=== PATIENT | female | born 1990 | race Caucasian/White ===

== ENCOUNTER 2020-10-24 16:32 | Day surgery (SDC) | payer BC ==
[2020-10-24 17:36] VITALS: BMI 29.2
[2020-10-24] MEDS ORDERED: hydrALAZINE 20 MG/ML VIAL SLOW IVP PRN (18:55)
== END 2020-10-24 20:30 | disposition home or self-care (01) ==
LOC: CSHLD/OP 16:32
PROVIDERS: ATTEND Student in an Organized Health Care Education/Training Program
DX: O47.1 False labor at or after 37 completed weeks of gestation (principal); O24.410 Gestational diabetes mellitus in pregnancy, diet controlled; Z3A.39 39 weeks gestation of pregnancy; Z88.5 Allergy status to narcotic agent; Z91.048 Other nonmedicinal substance allergy status
CPT/HCPCS: 36416

== ENCOUNTER 2020-10-25 18:05 | Inpatient (IN) | payer BC ==
[2020-10-25] MEDS ORDERED: hydrALAZINE 20 MG/ML VIAL SLOW IVP PRN ×2 (18:26→23:20)
[2020-10-25] MEDS ORDERED: NS / Oxytocin 40 units/1000ml 1,000 ML IV PRN (18:26)
[2020-10-25] MEDS ORDERED: Promethazine HCl 25 MG/ML VIAL IM PRN ×2 (18:26→19:28)
[2020-10-25] MEDS ORDERED: Lidocaine 1% (PF) 30 ML VIAL SC PRN (18:26)
[2020-10-25] MEDS ORDERED: Ondansetron PF 4 MG/2 ML Vial IVP PRN ×2 (18:26→19:28)
[2020-10-25] MEDS ORDERED: Lactated Ringer's 1,000 ML IV SCH (18:30)
[2020-10-25 18:48] LABS: Hemoglobin 10.9 g/dL (12.0-15.5); Mean Corpuscular Hemoglobin 28.8 pg (27.0-33.0); Mean Corpuscular Volume 84.7 fl (81.6-98.3); Mean Platelet Volume 11.5 fl (7.4-10.4); Platelet Count 214 10x3/uL (150-450); RBC Distribution Width 13.2 % (11.5-14.5); Red Blood Cell (RBC) Count 3.79 10x6/uL (3.90-5.03); White Blood Cell (WBC) Count 10.3 10x3/uL (3.5-10.5)
[2020-10-25] MEDS ORDERED: Fentanyl 4 mcg/Bup 0.1% Cadd 100 ML ONE (18:57)
[2020-10-25 18:59] VITALS: BMI 29.2
[2020-10-25 19:22] LABS: Hep B Surf Ag Non-Reactive S/CO (NonReactive); Syphilis Antibody Nonreactive (Nonreactive); Syphilis Antibody Index 0.05 S/CO (<1.00 Non-Reactive)
[2020-10-25] MEDS ORDERED: Acetaminophen 325 MG TAB PO PRN (19:28)
[2020-10-25] MEDS ORDERED: Eucerin (Mineral Oil/Petrolatum,White) 30 gm Jar TOP PRN (19:28)
[2020-10-25] MEDS ORDERED: Lactated Ringer's 500 ML IV PRN (19:28)
[2020-10-25] MEDS ORDERED: diphenhydrAMINE 50 MG/ML VIAL IVP PRN (19:28)
[2020-10-25] MEDS ORDERED: ePHEDrine 50 MG/ML VIAL SLOW IVP PRN (19:28)
[2020-10-25] MEDS ORDERED: Naloxone HCl 0.4 mg/ml Vial IVP PRN ×2 (19:28)
[2020-10-25] MEDS ORDERED: Communication Order-Pharmacy FS SCH (19:30)
[2020-10-25] MEDS ORDERED: Fentanyl 4 mcg/Bupivacaine 0.1% Cassette 100 ML EPIDURAL SCH (19:30)
[2020-10-25 19:45] LABS: HBSAg Index 0.13 S/CO (0-0.99)
[2020-10-25] MEDS ORDERED: Lidocaine 1% (PF) 30 ML VIAL ONE (20:13)
[2020-10-25] MEDS ORDERED: NS w/ Oxytocin 30 units 500 ML ONE ×2 (20:13→22:49)
[2020-10-25] MEDS ORDERED: Bisacodyl 10 MG SUPP PR PRN (23:20)
[2020-10-25] MEDS ORDERED: NS / Oxytocin 40 units/1000ml 1,000 ML IV SCH (23:20)
[2020-10-25] MEDS ORDERED: Milk Of Magnesia 30 ML UDCUP PO PRN (23:20)
[2020-10-25] MEDS ORDERED: Benzocaine-Menthol 82.5 ML CAN TOP PRN (23:20)
[2020-10-25] MEDS ORDERED: Lanolin Ointment 7 GM TUBE TOP PRN (23:20)
[2020-10-25] MEDS ORDERED: NS w/ Oxytocin 30 units 500 ML IV SCH (23:45)
[2020-10-26] MEDS: Ibuprofen 800 MG TAB PO SCH ×4 (03:43→23:44)
[2020-10-26 05:28] LABS: Hemoglobin 9.6 g/dL (12.0-15.5)
[2020-10-26] MEDS: Ferrous Sulfate 325 MG TAB PO SCH ×3 (08:11→18:04)
[2020-10-26] MEDS ORDERED: Adacel (T-DAP) 0.5 ML SYRINGE IM ONE (09:00)
[2020-10-26] MEDS: Docusate Calcium (SURFAK) 240 MG CAP PO SCH ×2 (09:56→23:45)
[2020-10-26] MEDS: Prenatal Vitamin 1 TAB PO SCH (09:56)
[2020-10-26 13:07] LABS: SARS-CoV-2 PCR by NAA Not Detected (NotDetected)
[2020-10-27] MEDS: Ibuprofen 800 MG TAB PO SCH ×4 (02:17→23:49)
[2020-10-27] MEDS: Docusate Calcium (SURFAK) 240 MG CAP PO SCH ×3 (02:18→23:49)
[2020-10-27] MEDS: Prenatal Vitamin 1 TAB PO SCH (08:24)
[2020-10-27] MEDS: Ferrous Sulfate 325 MG TAB PO SCH ×2 (08:24→17:46)
[2020-10-28 08:04] VITALS: BP 127/83; TEMP 98.1
[2020-10-28] MEDS: Docusate Calcium (SURFAK) 240 MG CAP PO SCH (09:45)
[2020-10-28] MEDS: Prenatal Vitamin 1 TAB PO SCH (09:45)
[2020-10-28] MEDS: Ibuprofen 800 MG TAB PO SCH (09:45)
[2020-10-28] MEDS: Ferrous Sulfate 325 MG TAB PO SCH (09:45)
== END 2020-10-28 12:44 | disposition home or self-care (01) | DRG 806 ==
LOC: CSHLD/OP 18:05 → CSHLD 19:00 → CSHPP 23:35
PROVIDERS: ADMIT Student in an Organized Health Care Education/Training Program; ATTEND Student in an Organized Health Care Education/Training Program
PROC: 10E0XZZ Delivery of Products of Conception, External Approach (ICD-10-PCS; principal; 2020-10-26)
PROC: 0HQ9XZZ Repair Perineum Skin, External Approach (ICD-10-PCS; 2020-10-26)
DX: O24.429 Gestational diabetes mellitus in childbirth, unspecified control (principal); D62 Acute posthemorrhagic anemia; Z37.0 Single live birth; Z3A.39 39 weeks gestation of pregnancy; Z20.822 Contact with and (suspected) exposure to COVID-19; O77.0 Labor and delivery complicated by meconium in amniotic fluid; O70.0 First degree perineal laceration during delivery; O90.81 Anemia of the puerperium; S86.912A Strain of unspecified muscle(s) and tendon(s) at lower leg level, left leg, initial encounter; O90.89 Other complications of the puerperium, not elsewhere classified
CPT/HCPCS: 36416; 51702; 85014; 85018; 85027; 86780; 86850; 86900; 86901; 87340; 87635; 99283; 99285; J2590; U0003; U0005

== ENCOUNTER 2022-01-13 11:25 | Day surgery (SDC) | payer BC ==
[2022-01-08 09:39] LABS: Hemoglobin 13.4 g/dL (12.0-15.5); Mean Corpuscular HGB CONC 34.2 g/dL (32.0-36.0); Mean Corpuscular Hemoglobin 29.6 pg (27.0-33.0); Mean Corpuscular Volume 86.7 fl (81.6-98.3); Mean Platelet Volume 10.9 fl (7.4-10.4); Platelet Count 295 10x3/uL (150-450); RBC Distribution Width 12.6 % (11.5-14.5); Red Blood Cell (RBC) Count 4.52 10x6/uL (3.90-5.03); White Blood Cell (WBC) Count 5.4 10x3/uL (3.5-10.5)
[2022-01-08 09:44] LABS: BHCG - Serum Negative (NEGATIVE)
[2022-01-08 09:45] LABS: Pregs Control Background? CLEAR/WHITE (CLR/WHITE); Pregs Control Bar Appear? YES (CONTROL BAR)
[2022-01-11 11:07] VITALS: BMI 24.9
[2022-01-13] MEDS ORDERED: Gabapentin 300 MG CAP ONE (11:50)
[2022-01-13] MEDS ORDERED: Lidocaine 1% MPF 2 ML VIAL ONE (11:51)
[2022-01-13] MEDS ORDERED: Famotidine/PF 20 mg/2ml Vial ONE (11:51)
[2022-01-13] MEDS ORDERED: CeleCOXIB 100 MG CAP ONE (11:51)
[2022-01-13] MEDS ORDERED: Bupivacaine PF 0.5% 30 ML VIAL ONE (12:28)
[2022-01-13] MEDS ORDERED: EPINEPHrine 1 MG/ML AMP ONE (12:28)
[2022-01-13] MEDS ORDERED: CEFAZOLIN 2 GM VIAL ONE (13:00)
[2022-01-13] MEDS ORDERED: Fentanyl 100 MCG/2 ML VIAL ONE ×2 (13:08→15:05)
[2022-01-13] MEDS ORDERED: PROPOFOL 20 ML ONE (13:08)
[2022-01-13] MEDS ORDERED: Midazolam HCl 2 mg/2 ml Vial ONE (13:08)
[2022-01-13] MEDS ORDERED: Glycopyrrolate 0.2 MG/ML 5 ML SYRINGE ONE (13:09)
[2022-01-13] MEDS ORDERED: Lidocaine 1% PF 5 ML VIAL ONE (13:09)
[2022-01-13] MEDS ORDERED: Ondansetron PF 4 MG/2 ML Vial ONE (13:09)
[2022-01-13] MEDS ORDERED: Dexamethasone 20 MG/5 ML VIAL ONE (13:09)
[2022-01-13] MEDS ORDERED: Rocuronium Bromide 10 MG/ML (10ML VIAL) ONE (13:09)
[2022-01-13] MEDS ORDERED: Ketorolac Tromethamine 30 MG/ML VIAL ONE (13:09)
[2022-01-13] MEDS ORDERED: Meperidine HCl/PF 25 MG/ML VIAL ONE (14:24)
== END 2022-01-13 16:45 | disposition home or self-care (01) ==
LOC: CSHSDC 11:25
PROVIDERS: ATTEND Student in an Organized Health Care Education/Training Program
DX: N80.3 Endometriosis of pelvic peritoneum (principal); N83.10 Corpus luteum cyst of ovary, unspecified side; Z87.891 Personal history of nicotine dependence; Z79.899 Other long term (current) drug therapy; Z88.5 Allergy status to narcotic agent; Z91.018 Allergy to other foods; Z20.822 Contact with and (suspected) exposure to COVID-19
CPT/HCPCS: 84703; 85027; 86850; 86900; 86901; 88305; J0171; J0690; J1100; J1885; J2175; J2250; J2405; J2704; J3010; S0020; S0028; U0003; U0005